=== PATIENT | female | born 1955 | race Caucasian/White ===

== ENCOUNTER 2018-07-18 15:57 | Emergency (ER) | payer OTHER ==
[~2018-07-18] VITALS: Wt 112.0 kg
[~2018-07-18 15:57] MED LIST: ACET1TAB40 PO; ASPI-1046 PO; ATOR-2 PO; CLOP75TA27 PO; ERGO500013 PO; FURO-110 PO; LORA1TAB PO; MECL-77 PO; METO-429 PO; PANT40TA4 PO; POTA8CAP PO; SERT50TA6 PO
--- NOTE | 2018-07-18 16:59 | ERD ---
ER Documentation Chief Complaint Chief Complaint right knee pain HPI 62-year-old female, with hypertension, history of coronary artery disease and bilateral severe knee osteoarthritis, presents to the emergency department, complaining of acute onset of right knee pain in the absence of any trauma. The pain is dull, constant, 6/10; the patient is requesting a refill for [place]. ROS All systems reviewed and are negative except as per history of present illness. Medications Home Meds Active Scripts Hydrocodone/Acetaminophen ([place] 5-325 Tablet) 1 Each Tablet, 1 TAB PO QHS PRN for PAIN, #7 TAB Prov:PREMA FREITAS MD 07/18/18 Sertraline Hcl* (Sertraline Hcl*) 50 Mg Tablet, 50 MG PO DAILY for 30 Days, TAB Home medication Prov:FLYNN ALAS 09/11/16 Pantoprazole (Protonix) 40 Mg Tabec, 40 MG PO BID for 30 Days, TAB 3 Refills Prov:FLYNN ALAS 09/11/16 Reported Medications Ergocalciferol (Vitamin D2) (VITAMIN D2) 50,000 Unit Capsule, 06080 UNIT PO, CAP 09/11/16 Lorazepam* (Lorazepam*) 1 Mg Tablet, 1 MG PO Q8 PRN for ANXIETY, #60 TAB 09/11/16 Meclizine Hcl* (Meclizine Hcl*) 25 Mg Tablet, 25 MG PO Q8H PRN for DIZZINESS, TAB 09/11/16 Clopidogrel Bisulfate (Clopidogrel) 75 Mg Tablet, 75 MG PO DAILY, #30 TAB 02/08/16 Atorvastatin* (Atorvastatin*) 80 Mg Tablet, 80 MG PO QHS, #30 TAB 04/20/15 Furosemide* (Lasix*) 20 Mg Tablet, 20 MG PO BID, TAB 04/20/15 Potassium Chloride* (Potassium Chloride*) 8 Meq Capsule.er, 8 MEQ PO BID, CAP 04/20/15 Metoprolol Tartrate* (Lopressor*) 50 Mg Tab, 50 MG PO BID, #60 TAB 04/20/15 Acetaminophen-Codeine* (Acetaminophen-Cod #3*) 300-30 Mg Tab, 1 TAB PO TID PRN for PAIN, #30 TAB 04/20/15 Aspirin* (Aspirin* (EC)) 81 Mg Tablet.dr, 81 MG PO DAILY, TAB 12/18/13 Allergies Allergies: Coded Allergies: No Known Allergy (Unverified , 09/11/16) PMhx/Soc History of Surgery: Yes (STENT PLACEMENT 2014) Anesthesia Reaction: No Hx Neurological Disorder: No Hx Respiratory Disorders: No Hx Cardiac Disorders: Yes (STENT PLACEMENT , HTN) Hx Psychiatric Problems: No Hx Miscellaneous Medical Probl: No Hx Alcohol Use: No Hx Substance Use: No Hx Tobacco Use: No Smoking Status: Never smoker FmHx Family History: diabetes, coronary disease Physical Exam Vitals Vital Signs Date Temp Pulse Resp B/P (MAP) Pulse Ox O2 O2 Flow FiO2 Time Delivery Rate 07/18/18 98.1 86 18 161/88 99 16:04 (112) Physical Exam Const: No acute distress Head: Atraumatic Eyes: Normal Conjunctiva ENT: Normal External Ears, Nose and Mouth. Neck: Full range of motion. No meningismus. Resp: Clear to auscultation bilaterally Cardio: Regular rate and rhythm, no murmurs Abd: Soft, non tender, non distended. Normal bowel sounds Skin: No petechiae or rashes Back: No midline or flank tenderness Ext: Right knee: Normal inspection, decreased range of motion due to pain, distal neurovascular exam intact Neur: Awake and alert Psych: Normal Mood and Affect Procedures/MDM Acute right knee pain: no red flags. Differential diagnosis include but not limited to: Knee contusion, meniscus injury, tendon/ligament injury, arthritis; low suspicion for fracture, dislocation, septic arthritis. Neurovascular exam grossly intact. no clinical findings suggestive of acute infectious process, no acute deformity, no edema, no rashes. Physical examination and clinical presentation consistent most likely with acute on chronic knee pain. During the ED course the patient remained stable. Results and clinical impression discussed with the patient who agrees with management. The patient is stable to be treated outpatient and will be discharged home with recommendations for ice, rest and [place]#7 and close monitoring. The patient was instructed to follow up with the primary care provider in the next 48h. If symptoms persist, worsen or new symptoms develop, then patient should return to the ED immediately. Instructions explained and given to patient with acknowledgment and demonstrated understanding. Disclaimer: Inadvertent spelling and grammatical errors are likely due to EHR/dictation software use and do not reflect on the overall quality of patient care. Also, please note that the electronic time recorded on this note does not necessarily reflect the actual time of the patient encounter. Departure Diagnosis: Primary Impression: Osteoarthritis of right knee Condition: Stable Additional Instructions: Thank you very much for allowing us to participate in your care. Your health and safety is our top priority at [facility]. Call your primary care doctor TOMORROW for an appointment during the next 2-4 days and bring all the information provided. Have prescriptions filled and follow precisely the directions on the label. If the symptoms get worse and your provider is unavailable, return to the Emergency Department immediately. PREMA FREITAS MD Jul 18, 2018 16:59
[2018-07-18] MEDS ORDERED: HYDR-4011 PO (17:11)
== END 2018-07-18 17:21 | disposition home or self-care (01) ==
LOC: FTE 15:57
DX: M17.11 Unilateral primary osteoarthritis, right knee (principal); I10 Essential (primary) hypertension; I25.10 Atherosclerotic heart disease of native coronary artery without angina pectoris; Z79.01 Long term (current) use of anticoagulants; Z79.82 Long term (current) use of aspirin; Z98.61 Coronary angioplasty status
CPT/HCPCS: 99283